=== PATIENT | male | born 1945 | race Caucasian/White ===

== ENCOUNTER 2020-10-06 10:10 | Inpatient (IN) ==
--- NOTE | 2020-10-06 10:33 | Emergency Department Note ---
SOB HPI General Chief Complaint: Shortness of Breath/Dyspnea Stated Complaint: SOB Time Seen by Provider: 10/06/20 10:16 Source: patient Mode of arrival: ambulatory Limitations: no limitations History of Present Illness HPI Narrative: Patient is a 75-year-old gentleman who arrives emergency department by private vehicle complaining of shortness of breath. The patient says he has been feeling short of breath for the past week or so. This is gradual in onset and has been progressively worsening over that period of time. He has had a mild cough without any significant sputum production. He denies any fever chills or chest pain associated with his symptoms. He has had some upper abdominal pain associated with the symptoms. He does have chronic peripheral edema but does not think this is worse than usual. He notes that he quit smoking just before the onset of his symptoms. He finds it exerting himself makes the symptoms worse. Nothing seems to make it any better Related Data Home Medications Medication Instructions Recorded Confirmed nitroglycerin 0.4 mg sublingual 0.4 mg SUBLINGUAL Q5-15M PRN 04/19/19 10/06/20 tablet Eliquis 5 mg PO BID 10/06/20 10/06/20 alogliptin 25 mg PO DAILY 10/06/20 10/06/20 lisinopril 10 mg PO DAILY 10/06/20 10/06/20 omeprazole 20 mg PO BIDAC 10/06/20 10/06/20 Previous Rx's Medication Instructions Recorded blood-glucose meter #1 each 05/18/19 blood sugar diagnostic #100 each 06/02/19 lancets #100 each 06/02/19 spironolactone 25 mg tablet 25 mg PO QDAY #90 tab 03/28/20 atorvastatin 40 mg tablet 40 mg PO QDAY #90 tab 06/15/20 omeprazole 20 mg capsule,delayed See Rx Instructions .ROUTE 06/22/20 release .COMPLEX #180 cap glipizide 5 mg tablet 5 mg PO BID #180 tab 09/14/20 metformin 1,000 mg tablet 1,000 mg PO BID #180 tab 09/14/20 metoprolol succinate 100 mg 50 mg PO BID #60 tab 09/25/20 tablet,extended release 24 hr Allergies Allergy/AdvReac Type Severity Reaction Status Date / Time No Known Drug Allergies Allergy Verified 10/06/20 17:30 Review of Systems ROS ROS Narrative: Narrative: All systems ED: reviewed and negative except as stated. Constitutional: Denies fever and chills Gastrointestinal: Denies nausea and vomiting PFSH Narrative Patient History Narrative: Narrative: Medical/Surgical/Family History All Active Problems (Updated 10/06/20 @ 17:45 by Jake Low DO) Congestive heart failure (Acute) Pleural effusion (Acute) Acute hypoxemic respiratory failure (Acute) Obesity (Acute) Hypertension, essential, benign (Chronic) Hyperlipidemia (Chronic) Rectus diastasis (Chronic) Arrhythmia (Chronic) Knee pain, bilateral (Chronic) Chronic low back pain (Chronic) Encounter for monitoring Coumadin therapy (Chronic) Onychomycosis (Chronic) Knee pain, left (Chronic) Spinal stenosis, lumbar (Chronic) Low blood pressure reading (Chronic) Type 2 diabetes mellitus with hyperglycemia (Chronic) Ventricular tachycardia (Chronic) Presence of automatic (implantable) cardiac defibrillator (Chronic) Ventricular tachycardia (Chronic) Congestive heart failure (Chronic) Diabetes (Chronic) Tobacco use (Chronic) Anticoagulated on warfarin (Chronic) Low blood pressure reading (Chronic) Hyperglycemia (Chronic) Medical History (Updated 10/06/20 @ 17:45 by Jake Low DO) Anticoagulated on warfarin Arrhythmia Chronic low back pain Diabetes Encounter for monitoring Coumadin therapy Hyperglycemia Hyperlipidemia Hypertension, essential, benign Knee pain, bilateral Knee pain, left Low blood pressure reading Low blood pressure reading Onychomycosis toenails Presence of automatic (implantable) cardiac defibrillator Rectus diastasis Spinal stenosis, lumbar Tobacco use Type 2 diabetes mellitus with hyperglycemia Ventricular tachycardia Surgical History History of pacemaker Placed 02/2018 No pertinent past surgical history Family History Other No pertinent family history Social History Smoking Status: Former smoker Alcohol Intake Frequency: former alcohol drinker Substance Use: does not use Exam Narrative Narrative: Gen -patient is awake and alert and in no acute distress. HEENT -head is atraumatic. There is no conjunctival pallor or scleral icterus. CV -S1-S2 regular rate and rhythm. Peripheral pulses are palpable. There is severe pitting edema bilateral lower extremities Resp -breathing is somewhat labored on room air with tachypnea and accessory muscle use. The patient is only able to speak a few words at a time. Lungs have mild rhonchi bilaterally. There is no cyanosis. GI - Abdomen is soft and nontender to palpation. There is no guarding or rebound tenderness. Derm -skin is warm and dry. MSK -present extremities are atraumatic. Psych -patient has appropriate affect. Neuro -patient answers questions appropriately with fluent speech. Patient moves all present extremities equally. General Limitations: no limitations Course Vital Signs Vital signs: Vital Signs Temperature 97 F 10/06/20 10:11 Pulse Rate 79 10/06/20 10:11 Respiratory Rate 24 H 10/06/20 10:11 Blood Pressure 151/78 10/06/20 10:11 Pulse Oximetry (%) 95 10/06/20 10:11 Temperature 97.9 F 10/06/20 15:37 Pulse Rate 73 10/06/20 16:01 Respiratory Rate 13 10/06/20 16:01 Blood Pressure 117/60 10/06/20 16:01 Pulse Oximetry (%) 95 10/06/20 16:01 [facility] MDM Narrative Medical decision making narrative: Patient presents with shortness of breath and peripheral edema. Chest x-ray reveals a large right-sided pleural effusion as well as pulmonary vascular congestion. His BNP is significantly elevated. There is mention of possible infiltrate in the radiologist report regarding his chest x-ray. I do not appreciate any definite focal consolidation and given the patient's lack of fever chest pain or other infectious symptoms I do not think he has pneumonia and would not benefit from antibiotics. I discussed the test results with the patient he is agreeable with the plan for admission. I discussed the patient's history examination and diagnostic findings with Dr. Munoz, who agrees with the plan of care and accepts admission. Critical care time I provided at least 31 minutes of critical care time. This was separate from any separately billable procedures. The patient was given supplemental oxygen to treat his hypoxemic respiratory failure. He was given IV diuretics to treat the causative congestive heart failure. The patient was closely monitored for response to treatment and stability of vital signs throughout their emergency department stay. Lab Data Lab results reviewed: Yes I reviewed the patient's lab results. Result diagrams: 10/06/20 11:07 Labs: Lab Results 10/06/20 10/06/20 10/06/20 Range/Units 11:07 11:07 11:07 WBC 6.0 (4.5-11.0) K/mcL RBC 3.89 L (4.50-5.90) M/mcL Hgb 11.7 L (13.5-16.5) g/dL Hct 36.5 L (41.0-55.0) % POC Hct 36 L (41-55) % MCV 93.8 (80.0-100.0) fL MCH 30.1 (26.0-34.0) pg MCHC 32.1 (31.0-36.0) g/dL RDW 15.5 H (11.5-14.5) % Plt Count 180 (140-440) K/mcL MPV 10.7 H (7.4-10.4) fL Seg Neutrophils % 65 (38-78) % Lymphocytes % 22 (15-49) % Monocytes % (Manual) 12 (1-12) % Eosinophils % (Manual) 1 (0-7) % Platelet Estimate Normal (Normal) RBC Morphology Abnormal A (Normal) Anisocytosis Few A (None Seen) POC Sodium 140 (133-145) mEq/L POC Potassium 4.2 (3.3-5.1) mEql/L POC Chloride 105 (96-108) mEq/L POC Total CO2 23 (22-30) mmol/L POC BUN 11 (6-20) mg/dL POC Creatinine 0.8 (0.6-1.2) mg/dL POC Glucose 95 (70-105) mg/dL POC WB Ioniz Calcium 1.18 (1.16-1.32) mmEq/L Troponin T < 0.01 (<0.03) ng/mL NT-Pro-B Natriuret Pep 492.4 H (<450.0) pg/mL Procalcitonin (<0.10) ng/mL 10/06/20 Range/Units 11:07 WBC (4.5-11.0) K/mcL RBC (4.50-5.90) M/mcL Hgb (13.5-16.5) g/dL Hct (41.0-55.0) % POC Hct (41-55) % MCV (80.0-100.0) fL MCH (26.0-34.0) pg MCHC (31.0-36.0) g/dL RDW (11.5-14.5) % Plt Count (140-440) K/mcL MPV (7.4-10.4) fL Seg Neutrophils % (38-78) % Lymphocytes % (15-49) % Monocytes % (Manual) (1-12) % Eosinophils % (Manual) (0-7) % Platelet Estimate (Normal) RBC Morphology (Normal) Anisocytosis (None Seen) POC Sodium (133-145) mEq/L POC Potassium (3.3-5.1) mEql/L POC Chloride (96-108) mEq/L POC Total CO2 (22-30) mmol/L POC BUN (6-20) mg/dL POC Creatinine (0.6-1.2) mg/dL POC Glucose (70-105) mg/dL POC WB Ioniz Calcium (1.16-1.32) mmEq/L Troponin T (<0.03) ng/mL NT-Pro-B Natriuret Pep (<450.0) pg/mL Procalcitonin 0.10 H (<0.10) ng/mL ED POC Tests ED POC Tests: RONY - SARS Antigen Negative EKG Data EKG #1: EKG attestation: Yes I reviewed and interpreted this EKG. EKG results narrative: EKG performed at 10:25 AM: Sinus rhythm, rate 76. Normal P wave and QRS morphology. T waves are inverted in leads III and aVF. There is 0.[address] depression in V4 through V6. Normal [place] QRS and QTc duration. There are no significant changes compared to October 21, 2019. EKG was interpreted by me. Discharge Plan Patient/Caregiver Discharge Instructions Pt seen by STORAGE ENGINEER/PA only: No Clinical Impression: Congestive heart failure, Pleural effusion, Acute hypoxemic respiratory failure Patient Disposition: Xfer As Inpt ([facility]) Condition: Fair Discharge Date/Time: 10/06/20 15:25
--- NOTE | 2020-10-06 10:55 | XRay Report ---
INDICATION: dyspnea TECHNIQUE: PA and lateral upright chest x-ray COMPARISON: Previous chest x-ray dated 10/21/2019, 05/21/2018, 02/17/2018 FINDINGS: Left-sided pacemaker. Transvenous pacemaker leads are in unchanged positions Lungs: Negative left lung. No parenchymal infiltrate or mass. There is a large right pleural effusion obscuring the right mid and lower lung. There is a right suprahilar infiltrate which may be consistent with pneumonia. Heart, vascular: No significant cardiomegaly. Pulmonary vascularity is normal. No pulmonary edema or pulmonary congestion Mediastinum, praful: No mediastinal widening. No hilar mass Pleura:Large right pleural effusion. This is new since 10/21/2019 Thoracic spine, ribs: No thoracic compression fracture. Ribs are negative. No fracture. No lytic lesion IMPRESSION: 1. Large right pleural effusion, new since 10/21/2019 2. Right upper lobe is aerated. There is a right suprahilar infiltrate. Pneumonia is possible Interpreted and Authenticated by: Denzel Oneal 10/06/20
[2020-10-06 11:12] LABS: POC Blood Urea Nitrogen 11 mg/dL (6-20); POC CO2 23 mmol/L (22-30); POC Calcium, Ionized 1.18 mmEq/L (1.16-1.32); POC Chloride 105 mEq/L (96-108); POC Creatinine 0.8 mg/dL (0.6-1.2); POC Glucose, Random 95 mg/dL (70-105); POC Hematocrit 36 % (41-55); POC Potassium 4.2 mEql/L (3.3-5.1); POC Sodium 140 mEq/L (133-145)
[2020-10-06 11:45] LABS: Hematocrit 36.5 % (41.0-55.0); Hemoglobin 11.7 g/dL (13.5-16.5); Mean Cell Volume 93.8 fL (80.0-100.0); Mean Corpuscular HGB Conc 32.1 g/dL (31.0-36.0); Mean Platelet Volume 10.7 fL (7.4-10.4); Platelet Count 180 K/mcL (140-440); RBC 3.89 M/mcL (4.50-5.90); Red Cell Distribution Width 15.5 % (11.5-14.5)
[2020-10-06 12:03] LABS: proBNP 492.4 pg/mL (<450.0)
[2020-10-06] MEDS ORDERED: FUROSEMIDE 20 MG/2 ML VIAL IV ONE (12:35)
[2020-10-06 12:41] LABS: Anisocytosis FEW (None Seen); Eosinophils % (Manual) 1 % (0-7); Lymphocytes % 22 % (15-49); Monocytes % (Manual) 12 % (1-12); Platelet Estimate NORMAL (Normal); RBC Morphology ABNORMAL (Normal); Segmented Neutrophils % 65 % (38-78)
--- NOTE | 2020-10-06 13:02 | EKG ---
[facility] Test Date: 2020-10-06 Pat Name: Wayne Kauffman Department: ED Room: Gender: Male Reconciliation Coordinator: : 1945 Requested By: Jake Low Order Number: [id number] Reading MD: Jose Jones M.D. Measurements Intervals [place] Rate: 76 P: 17 TN: 185 QRS: 70 QRSD: 119 T: -36 QT: 407 QTc: 458 Interpretive Statements Sinus rhythm Nonspecific intraventricular conduction delay Probable inferior infarct, age indeterminate ST depr, consider ischemia, anterolateral lds NO PRIOR TRACING FOR COMPARISON Electronically Signed On 10-06-2020 13:01:38 PDT by Jose Jones M.D. /store/[email or web address]/[id number]/[email or web address]/[id number]
--- NOTE | 2020-10-06 13:37 | Internal Med Progress Note ---
SUBJECTIVE Subjective Patient information: Note initiated : 10/06/20 at 1:36 pm Service Date, if different from initiated Date: [] Patient: Wayne Kauffman 75 y/o M admitted on for Shortness of breath. Chief Complaint: [] Constitutional Vitals: Vital Signs Temp Pulse Resp BP Pulse Ox 97 F 73 19 140/73 93 10/06/20 10:11 10/06/20 13:31 10/06/20 13:31 10/06/20 13:31 10/06/20 13:31 Period Temp Pulse Resp BP Sys/Levi Pulse Ox Last 24 Hr 97 F 66-79 17-26 110-151/65-82 93-100 Intake and Output 10/05/20 10/06/20 10/06/20 21:59 05:59 13:59 Weight 97.976 kg Patient Weight 10/07/20 05:59 Weight 97.976 kg Intake & Output: Intake & Output 10/05/20 10/06/20 10/06/20 21:59 05:59 13:59 Weight 97.976 kg OBJ DATA Labs CBC & Chem 7: 10/06/20 11:07 Labs: Abnormal Lab Results 10/06/20 10/06/20 11:07 11:07 RBC 3.89 L Hgb 11.7 L Hct 36.5 L POC Hct 36 L RDW 15.5 H MPV 10.7 H RBC Morphology Abnormal A Anisocytosis Few A NT-Pro-B Natriuret Pep 492.4 H A/P Narrative A/P Narrative: * ADHF * Pleural effusion * Rt sided PNA * Acute hypoxic respiratory failure * DMII * HTn * Anticoagulation * GERD Time Spent With Patient Time: Total time spent is greater than 50% in coordination of care (as documented) at patient's floor/unit and/or counseling patient:
--- NOTE | 2020-10-06 15:02 | Internal Med History&Physical ---
HPI History of Present Illness Patient information: Note initiated : 10/06/20 at 2:57 pm Service Date, if different from initiated Date: [] Patient: Wayne Kauffman a 75 y/o M admitted on for Shortness of breath. Chief Complaint: [] History of present illness: Mr. Kauffman is a 75 year old M With history of systolic heart failure/DM type II/HTN/chronic lymphedema and active smoker who presents to the ER with 2 weeks onset of gradually worsening shortness of breath limiting his functionality. Patient's has been getting more fatigue lethargic/gaining weight with increasing lower extremity swelling. Over the last week he has noted increasing orthopnea unable to lay down on his back. Symptoms progressed when the last 48 hours he has been barely able to move around. He lives along with his daughter in [facility] in the basement. Due to his symptoms patient was brought into the ER for evaluation. On of last month he underwent ablation for atrial fibrillation and successful conversion to sinus. He is currently on Eliquis Initial work-up in the ER was consistent with acute decompensated heart failure/right-sided chest infiltrates and pleural effusion. Hospital service was consulted for management of CHF and above symptoms. At the time of my evaluation patient is alert and oriented. She was able to answer most the questions. Is currently on 2 L oxygen. He denies NSAID intake/excessive salt diet/missing his regular home medications. He denies sick contacts, fever, chills, diarrhea, dysuria. He is up-to-date on flu pneumonia and Covid vaccine. He follows up with physician Royce Mckee Review of systems 10 point review system was performed and is negative except for ones discussed above PFSH PFSH All Active Problems Obesity (Acute) Hypertension, essential, benign (Chronic) Hyperlipidemia (Chronic) Rectus diastasis (Chronic) Arrhythmia (Chronic) Knee pain, bilateral (Chronic) Chronic low back pain (Chronic) Encounter for monitoring Coumadin therapy (Chronic) Onychomycosis (Chronic) Knee pain, left (Chronic) Spinal stenosis, lumbar (Chronic) Low blood pressure reading (Chronic) Type 2 diabetes mellitus with hyperglycemia (Chronic) Ventricular tachycardia (Chronic) Presence of automatic (implantable) cardiac defibrillator (Chronic) Ventricular tachycardia (Chronic) Congestive heart failure (Chronic) Diabetes (Chronic) Tobacco use (Chronic) Anticoagulated on warfarin (Chronic) Low blood pressure reading (Chronic) Hyperglycemia (Chronic) Medical History Anticoagulated on warfarin Arrhythmia Chronic low back pain Diabetes Encounter for monitoring Coumadin therapy Hyperglycemia Hyperlipidemia Hypertension, essential, benign Knee pain, bilateral Knee pain, left Low blood pressure reading Low blood pressure reading Onychomycosis toenails Presence of automatic (implantable) cardiac defibrillator Rectus diastasis Spinal stenosis, lumbar Tobacco use Type 2 diabetes mellitus with hyperglycemia Ventricular tachycardia Surgical History History of pacemaker Placed 02/2018 No pertinent past surgical history Family History Other No pertinent family history Social History household members: alone marital status: daily servings fruits/ve-1 physical activity: walking alcohol intake frequency: former alcohol drinker substance use type: does not use MEDS/ALLERGIES Home Medications and Allergies Home Medications Medication Instructions Recorded Confirmed Type nitroglycerin 0.4 mg sublingual 0.4 mg SUBLINGUAL Q5-15M PRN 04/19/19 10/06/20 History tablet blood-glucose meter #1 each 05/18/19 10/06/20 Rx blood sugar diagnostic #100 each 06/02/19 10/06/20 Rx lancets #100 each 06/02/19 10/06/20 Rx spironolactone 25 mg tablet 25 mg PO QDAY #90 tab 03/28/20 10/06/20 Rx atorvastatin 40 mg tablet 40 mg PO QDAY #90 tab 06/15/20 10/06/20 Rx omeprazole 20 mg capsule,delayed See Rx Instructions .ROUTE 06/22/20 10/06/20 Rx release .COMPLEX #180 cap lisinopril 10 mg tablet See Rx Instructions .ROUTE 08/08/20 10/06/20 Rx .COMPLEX #90 tab alogliptin 25 mg tablet See Rx Instructions .ROUTE 09/11/20 10/06/20 Rx .COMPLEX #90 tab glipizide 5 mg tablet 5 mg PO BID #180 tab 09/14/20 10/06/20 Rx metformin 1,000 mg tablet 1,000 mg PO BID #180 tab 09/14/20 10/06/20 Rx metoprolol succinate 100 mg 50 mg PO BID #60 tab 09/25/20 10/06/20 Rx tablet,extended release 24 hr Eliquis 5 mg PO BID 10/06/20 10/06/20 History Allergies Allergy/AdvReac Type Severity Reaction Status Date / Time No Known Drug Allergies Allergy Verified 09/14/20 08:44 EXAM Constitutional Vitals: Temp Pulse Resp BP Pulse Ox 97 F 81 18 121/77 97 10/06/20 10:11 10/06/20 14:16 10/06/20 14:31 10/06/20 14:31 10/06/20 14:16 Alert oriented, no anxiety Head normocephalic Oral cavity moist No ear or nose discharge Eye no subconjunctival pallor, movement symmetrical S1-S2 regular sinus On 2 L oxygen, minimal labored breathing, diminished breath sounds right base Nondistended nontender abdomen Lower extremity bilateral pitting edema, no cyanosis clubbing or joint swelling Skin no suspicious lesion Psych anxious but no hallucination Neuro normal higher function on limited neuro exam DATA Data Completed and Pending Labs: Labs from last 24 hours 10/06/20 10/06/20 10/06/20 11:07 11:07 11:07 WBC 6.0 RBC 3.89 L Hgb 11.7 L Hct 36.5 L POC Hct 36 L MCV 93.8 MCH 30.1 MCHC 32.1 RDW 15.5 H Plt Count 180 MPV 10.7 H Seg Neutrophils % 65 Lymphocytes % 22 Monocytes % (Manual) 12 Eosinophils % (Manual) 1 Platelet Estimate Normal RBC Morphology Abnormal A Anisocytosis Few A POC Sodium 140 POC Potassium 4.2 POC Chloride 105 POC Total CO2 23 POC BUN 11 POC Creatinine 0.8 POC Glucose 95 POC WB Ioniz Calcium 1.18 Troponin T < 0.01 NT-Pro-B Natriuret Pep 492.4 H A/P Narrative A/P Narrative: * Acute decompensated heart failure, review recent echocardiogram EF 35 to 40%. Continue diuresis. Continue TENNILLE inhibitor/beta-felix/spironolactone and optimize CHF management. Inpatient hospitalization * Acute hypoxic respiratory failure secondary above. Continue supplemental oxygen/pulmonary toilet * Right-sided chest infiltrates suspected pneumonia. Empiric antibiotic coverage and de-escalate if no evidence of active infection. Procalcitonin/sputum exam/cultures. * Right-sided pleural effusion likely secondary to CHF. Repeat interval chest imaging following aggressive diuresis. * DM type II continue alogliptin/Metformin/diabetic diet/insulin sliding scale * GERD continue PPI * Anticoagulation on rivaroxaban for CVA prophylaxis * Hyperlipemia continue statin Plan * Inpatient admission * Aggressive diuresis * Pre-existing medical condition management home medication * Wean oxygen as tolerated * Empiric antibiotics DC if no evidence of infection * PT OT nutrition support * Discharge planning Time Spent With Patient Time: Total time spent is greater than 50% in coordination of care (as documented) at patient's floor/unit and/or counseling patient:
[2020-10-06] MEDS ORDERED: DEXTROSE 50% 50 ML VIAL IV PRN (15:37)
[2020-10-06] MEDS ORDERED: POTASSIUM CHLORIDE 20 MEQ PACKET PO PRN (15:37)
[2020-10-06] MEDS ORDERED: ONDANSETRON 4 MG/2 ML VIAL IV PRN (15:37)
[2020-10-06] MEDS ORDERED: POTASSIUM CHLORIDE 40 MEQ in DEXTROSE 5% IN WATER 500 ML IV PRN (15:37)
[2020-10-06] MEDS ORDERED: BISACODYL 10 MG SUPP.RECT PR PRN (15:37)
[2020-10-06] MEDS ORDERED: ONDANSETRON 4 MG ODT TABLET SL PRN (15:37)
[2020-10-06] MEDS ORDERED: METOPROLOL TARTRATE 5 MG/5 ML VIAL IV PRN (15:37)
[2020-10-06] MEDS ORDERED: POLYETHYLENE GLYCOL 3350 17 GM PACKET PO PRN (15:37)
[2020-10-06] MEDS ORDERED: DEXTROSE 31 GM ORAL.SUSP PO PRN (15:37)
[2020-10-06] MEDS: FUROSEMIDE 40 MG/4 ML VIAL IV SCH ×2 (16:12→23:22)
[2020-10-06] MEDS: 0.9 % SODIUM CHLORIDE 10 ML SYRINGE IV SCH ×3 (16:12→23:22)
[2020-10-06] MEDS: LEVOFLOXACIN 750 MG/150 ML BAG IV SCH (16:12)
[2020-10-06] MEDS: ACETAMINOPHEN 325 MG TABLET PO PRN (16:13)
[2020-10-06] MEDS: LISINOPRIL 10 MG TABLET PO SCH (16:13)
[2020-10-06] MEDS: INSULIN LISPRO 1 UNIT/0.01 ML UNIT SQ SCH ×2 (16:14→20:53)
[2020-10-06] MEDS: OMEPRAZOLE 20 MG CAPSULE PO SCH (16:16)
[2020-10-06] MEDS: metFORMIN 500 MG TABLET PO SCH (16:55)
[2020-10-06] MEDS: METOPROLOL SUCCINATE 50 MG TAB.XL.24H PO SCH (21:35)
[2020-10-06] MEDS: DOCUSATE SODIUM 100 MG CAPSULE PO SCH (21:35)
[2020-10-06] MEDS: SENNOSIDES/DOCUSATE SODIUM 1 TAB TABLET PO SCH (21:35)
[2020-10-06] MEDS: APIXABAN 5 MG TABLET PO SCH (21:35)
[2020-10-06] MEDS: MELATONIN 3 MG TABLET PO PRN (21:35)
[2020-10-06] MEDS: TAMSULOSIN 0.4 MG CAPSULE PO SCH (21:35)
[2020-10-07] MEDS: ACETAMINOPHEN 325 MG TABLET PO PRN (00:51)
[2020-10-07] MEDS: 0.9 % SODIUM CHLORIDE 10 ML SYRINGE IV SCH ×3 (05:45→21:03)
[2020-10-07 06:59] LABS: ALT/SGPT 25 U/L (<40); AST/SGOT 41 U/L (<40); Albumin 3.5 gm/dL (3.2-5.2); Albumin/Globulin Ratio 1.3 (1.0-2.3); Alkaline Phosphatase 115 U/L (39-117); Bilirubin,Direct < 0.2 mg/dL (0-0.3); Bilirubin,Total 0.4 mg/dL (0.1-1.0); Blood Urea Nitrogen 16 mg/dL (8-23); Calcium 8.9 mg/dL (8.6-10.4); Carbon Dioxide 23 mmol/L (22-30); Chloride 98 mmol/L (96-108); Globulin 2.8 gm/dL (2.2-3.7); Glomerular Filtration Rate 58; Glucose 131 mg/dL (70-105); Lactate Dehydrogenase 262 U/L (135-225); Triglycerides 88 mg/dL (<150); Uric Acid 6.1 mg/dL (2.5-8.0)
[2020-10-07] MEDS: MAGNESIUM SULFATE 2 GM/50 ML BAG IV PRN (07:43)
[2020-10-07] MEDS: metFORMIN 500 MG TABLET PO SCH ×2 (07:44→16:55)
[2020-10-07] MEDS: OMEPRAZOLE 20 MG CAPSULE PO SCH ×2 (07:44→16:56)
[2020-10-07] MEDS: FUROSEMIDE 40 MG/4 ML VIAL IV SCH ×3 (07:45→23:42)
[2020-10-07] MEDS: INSULIN LISPRO 1 UNIT/0.01 ML UNIT SQ SCH ×4 (07:46→21:03)
[2020-10-07 07:55] LABS: Basophils # (Auto) 0.04 K/mcL (0.00-0.20); Basophils % (Auto) 0.8 % (0.0-2.0); Eosinophils # (Auto) 0.12 K/mcL (0.00-0.70); Eosinophils % (Auto) 2.5 % (0.0-7.0); Hematocrit 33.2 % (41.0-55.0); Hemoglobin 10.5 g/dL (13.5-16.5); Lymphocytes # (Auto) 0.95 K/mcL (1.50-4.80); Lymphocytes % (Auto) 19.6 % (15.0-49.0); Mean Cell Volume 94.6 fL (80.0-100.0); Mean Corpuscular HGB Conc 31.6 g/dL (31.0-36.0); Monocytes # (Auto) 0.71 K/mcL (0.10-0.90); Monocytes % (Auto) 14.7 % (1.0-12.0); Neutrophils % (Auto) 62.4 % (38.0-78.0); Platelet Count 138 K/mcL (140-440); RBC 3.51 M/mcL (4.50-5.90); Red Cell Distribution Width 15.6 % (11.5-14.5); WBC 4.8 K/mcL (4.5-11.0)
[2020-10-07 08:32] LABS: Erythrocyte Sedimentation Rate 34 mm/hr (0-15)
[2020-10-07] MEDS: LEVOFLOXACIN 750 MG/150 ML BAG IV SCH (09:30)
[2020-10-07] MEDS: ATORVASTATIN 40 MG TABLET PO SCH (09:42)
[2020-10-07] MEDS: MULTIVIT,THER IRON,CA,FA & MIN 1 TABLET PO SCH (09:42)
[2020-10-07] MEDS: SPIRONOLACTONE 25 MG TABLET PO SCH (09:42)
[2020-10-07] MEDS: THIAMINE 100 MG TABLET PO SCH (09:42)
[2020-10-07] MEDS: DOCUSATE SODIUM 100 MG CAPSULE PO SCH ×2 (09:43→21:02)
[2020-10-07] MEDS: APIXABAN 5 MG TABLET PO SCH ×2 (09:43→21:02)
--- NOTE | 2020-10-07 10:05 | Internal Med Progress Note ---
SUBJECTIVE Subjective Patient information: Note initiated : 10/07/20 at 10:01 am Service Date, if different from initiated Date: [] Patient: Wayne Kauffman a 75 y/o M admitted on 10/06/20 for Shortness of breath. Chief Complaint: [] Interval history: History of present illness: Mr. Kauffman is a 75 year old M With history of systolic heart failure/DM type II/HTN/chronic lymphedema and active smoker who presents to the ER with 2 weeks onset of gradually worsening shortness of breath limiting his functionality. Patient's has been getting more fatigue lethargic/gaining weight with increasing lower extremity swelling. Over the last week he has noted increasing orthopnea unable to lay down on his back. Symptoms progressed when the last 48 hours he has been barely able to move around. He lives along with his daughter in [facility] in the basement. Due to his symptoms patient was brought into the ER for evaluation. On of last month he underwent ablation for atrial fibrillation and successful conversion to sinus. He is currently on Eliquis Initial work-up in the ER was consistent with acute decompensated heart failure/right-sided chest infiltrates and pleural effusion. Hospital service was consulted for management of CHF and above symptoms. At the time of my evaluation patient is alert and oriented. She was able to an swer most the questions. Is currently on 2 L oxygen. He denies NSAID intake/excessive salt diet/missing his regular home medications. He denies sick contacts, fever, chills, diarrhea, dysuria. He is up-to-date on flu pneumonia and Covid vaccine. He follows up with physician Royce Mckee 10/07-patient doing a lot better. Diuresing well. No overnight events. Feels improved since admission. Orthopnea improving. Tolerating diet. Ongoing therapies. No overnight fever chills or concerns per nursing staff. Paced rhythm, pleasant and cooperative Constitutional Vitals: Vital Signs Temp Pulse Resp BP Pulse Ox 97.5 F 65 18 94/53 95 10/07/20 08:03 10/07/20 08:03 10/07/20 08:03 10/07/20 08:03 10/07/20 08:03 Period Temp Pulse Resp BP Sys/Levi Pulse Ox Last 24 Hr 97 F-98.2 F 65-85 13-28 78-151/42-88 89-100 Intake and Output 10/06/20 10/07/20 10/07/20 21:59 05:59 13:59 Intake Total 150 150 290 Output Total 675 550 50 Balance -525 -400 240 Weight 97.296 kg Alert oriented Nonlabored breathing Paced rhythm No anxiety Improving lymphedema Intake & Output: Intake & Output 10/06/20 10/07/20 10/07/20 21:59 05:59 13:59 Intake Total 150 150 290 Output Total 675 550 50 Balance -525 -400 240 Weight 97.296 kg Intake: IV 150 50 Oral 150 240 Output: Void Amount 675 550 50 Other: Meal Breakfast Percent of Meal Consumed 50% Feeding Ability Independent Urine Appearance Clear Clear Clear Urine Color Bright Yellow Dark Yellow Light Alyce Urine Odor Normal Normal Normal Stool Size Small Small Small Stool Color Brown Brown Brown Stool Consistency Soft Soft Zaira Formed # Bowel Movements 1 1 1 # of times incontinent of 0 0 Bowels OBJ DATA Labs CBC & Chem 7: 10/07/20 05:34 10/07/20 05:34 Labs: Abnormal Lab Results 10/07/20 10/07/20 10/06/20 05:34 05:34 11:07 RBC 3.51 L Hgb 10.5 L Hct 33.2 L POC Hct RDW 15.6 H Plt Count 138 L MPV 11.0 H Bent % (Auto) 14.7 H Lymph # (Auto) 0.95 L RBC Morphology Anisocytosis ESR 34 H Glucose 131 H Magnesium 1.1 L AST 41 H Lactate Dehydrogenase 262 H NT-Pro-B Natriuret Pep Procalcitonin 0.10 H 10/06/20 10/06/20 11:07 11:07 RBC 3.89 L Hgb 11.7 L Hct 36.5 L POC Hct 36 L RDW 15.5 H Plt Count MPV 10.7 H Bent % (Auto) Lymph # (Auto) RBC Morphology Abnormal A Anisocytosis Few A ESR Glucose Magnesium AST Lactate Dehydrogenase NT-Pro-B Natriuret Pep 492.4 H Procalcitonin Meds: Medications Acetaminophen (Acetaminophen 325 Mg Tablet) 650 mg PO Q4-6HP PRN; Protocol PRN Reason: Per Pain Protocol/Fever > 101 Last Admin: 10/07/20 00:51 Dose: 650 mg Documented by: Apixaban (Apixaban 5 Mg Tablet) 5 mg PO BID [facility] Last Admin: 10/07/20 09:43 Dose: 5 mg Documented by: Atorvastatin Calcium (Atorvastatin 40 Mg Tablet) 40 mg PO QDAY [facility] Last Admin: 10/07/20 09:42 Dose: 40 mg Documented by: Bisacodyl (Bisacodyl 10 Mg Supp.Rect) 10 mg NC Q2-3DAYS PRN PRN Reason: Constipation Dextrose (Dextrose 50% 50 Ml Vial) 0 ml IV UD PRN PRN Reason: Hypoglycemia Diagnostic Test (Pha) (Accu-Chek 1 Each Strip) 1 each FS [facility] Last Admin: 10/07/20 07:46 Dose: 1 each Documented by: Docusate Sodium (Docusate Sodium 100 Mg Capsule) 100 mg PO BID [facility] Last Admin: 10/07/20 09:43 Dose: 100 mg Documented by: Furosemide (Furosemide 40 Mg/4 Ml Vial) 20 mg IV Q8H [facility] Last Admin: 10/07/20 07:45 Dose: 20 mg Documented by: Glucose (Dextrose 31 Gm Oral.Susp) 15 gm PO PRN PRN PRN Reason: Hypoglycemia Potassium Chloride 40 meq/ (Dextrose) 520 mls @ 130 mls/hr IV UD PRN PRN Reason: K+ = or < 3.5 Acetaminophen (Ofirmev) 650 mg in 65 mls @ 130 mls/hr IV Q6HP PRN; Protocol PRN Reason: Per Pain Protocol/Fever > 101 Magnesium Sulfate (Magnesium Sulfate) 2 gm in 50 mls @ 50 mls/hr IV UD PRN PRN Reason: MG = or < 1.7 Last Infusion: 10/07/20 08:43 Dose: Infused Documented by: Levofloxacin (Levaquin) 750 mg in 150 mls @ 100 mls/hr IV DAILY [facility]; Protocol Last Admin: 10/07/20 09:30 Dose: 100 mls/hr Documented by: Insulin Human Lispro (Insulin Lispro 1 Unit/0.01 Ml Unit) 0 unit SQ [facility]; Protocol Last Admin: 10/07/20 07:46 Dose: Not Given Documented by: Iron Carb/Multivit/Love/Folic Acid (Multivit,Ther Iron,Ca,Fa & Min 1 Tablet) 1 tab PO DAILY [facility] Last Admin: 10/07/20 09:42 Dose: 1 tab Documented by: Lisinopril (Lisinopril 10 Mg Tablet) 10 mg PO DAILY [facility] Last Admin: 10/06/20 16:13 Dose: 10 mg Documented by: Melatonin (Melatonin 3 Mg Tablet) 3 mg PO HSP PRN PRN Reason: Insomnia Last Admin: 10/06/20 21:35 Dose: 3 mg Documented by: Metformin HCl (Metformin 500 Mg Tablet) 1,000 mg PO BIDCC [facility] Last Admin: 10/07/20 07:44 Dose: 1,000 mg Documented by: Metoprolol Succinate (Metoprolol Succinate 50 Mg Tab.Xl.24h) 50 mg PO BID [facility] Last Admin: 10/06/20 21:35 Dose: 50 mg Documented by: Metoprolol Tartrate (Metoprolol Tartrate 5 Mg/5 Ml Vial) 5 mg IV Q5M PRN PRN Reason: Heart Rate > 140 bpm Omeprazole (Omeprazole 20 Mg Capsule) 20 mg PO BIDAC [facility] Last Admin: 10/07/20 07:44 Dose: 20 mg Documented by: Ondansetron HCl (Ondansetron 4 Mg Odt Tablet) 4 mg SL Q4-6HP PRN; Protocol PRN Reason: Nausea And Vomiting Ondansetron HCl (Ondansetron 4 Mg/2 Ml Vial) 4 mg IV Q4-6HP PRN; Protocol PRN Reason: Nausea And Vomiting Alogliptin 25 Mg (Tablet) 1 dose PO DAILY [facility] Polyethylene Glycol (Polyethylene Glycol 3350 17 Gm Packet) 17 gm PO DAILYP PRN PRN Reason: Constipation Potassium Chloride (Potassium Chloride 20 Meq Packet) 40 meq PO DAILYP PRN PRN Reason: K+ < 3.5 Senna/Docusate Sodium (Sennosides/Docusate Sodium 1 Tab Tablet) 1 tab PO [facility] Last Admin: 10/06/20 21:35 Dose: 1 tab Documented by: Sodium Chloride (0.9 % Sodium Chloride 10 Ml Syringe) 10 ml IV Q8 [facility] Last Admin: 10/07/20 05:45 Dose: 10 ml Documented by: Spironolactone (Spironolactone 25 Mg Tablet) 25 mg PO QDAY [facility] Last Admin: 10/07/20 09:42 Dose: 25 mg Documented by: Tamsulosin HCl (Tamsulosin 0.4 Mg Capsule) 0.4 mg PO [facility] Last Admin: 10/06/20 21:35 Dose: 0.4 mg Documented by: Thiamine HCl (Thiamine 100 Mg Tablet) 100 mg PO DAILY [facility] Last Admin: 10/07/20 09:42 Dose: 100 mg Documented by: A/P Narrative A/P Narrative: * Acute decompensated heart failure, review recent echocardiogram EF 35 to 40%. Continue diuresis. Continue TENNILLE inhibitor/beta-felix/spironolactone and optimize CHF management. Inpatient hospitalization * Acute hypoxic respiratory failure secondary above. Continue supplemental oxygen/pulmonary toilet * Right-sided chest infiltrates suspected pneumonia. Procalcitonin 0.1/sputum exam/cultures. DC antibiotics * Low magnesium on replacement * History of arrhythmia status post ablation/pacemaker at [facility]. * Right-sided pleural effusion likely secondary to CHF. Repeat interval chest imaging following aggressive diuresis. * DM type II continue alogliptin/Metformin/diabetic diet/insulin sliding scale * GERD continue PPI * Anticoagulation on rivaroxaban for CVA prophylaxis * Hyperlipemia continue statin Plan * DC antibiotics * Continue diuresis * Replace magnesium * Pre-existing medical condition management home medication * Continue to wean oxygen as tolerated * PT OT nutrition support * Discharge planning Time Spent With Patient Time: Total time spent is greater than 50% in coordination of care (as documented) at patient's floor/unit and/or counseling patient: QUALITY VTE Deep Vein Thrombosis/Pulmonary Embolism Present on Admission: No
[2020-10-07] MEDS: METOPROLOL SUCCINATE 50 MG TAB.XL.24H PO SCH ×2 (11:31→21:03)
[2020-10-07] MEDS: LISINOPRIL 10 MG TABLET PO SCH (11:31)
[2020-10-07] MEDS: ACETAMINOPHEN 650 MG/65 ML BAG IV PRN (16:56)
[2020-10-07] MEDS: SENNOSIDES/DOCUSATE SODIUM 1 TAB TABLET PO SCH (21:02)
[2020-10-07] MEDS: TAMSULOSIN 0.4 MG CAPSULE PO SCH (21:03)
[2020-10-08] MEDS: 0.9 % SODIUM CHLORIDE 10 ML SYRINGE IV SCH ×3 (05:57→21:12)
[2020-10-08] MEDS: FUROSEMIDE 40 MG/4 ML VIAL IV SCH ×2 (07:23→16:53)
[2020-10-08] MEDS: metFORMIN 500 MG TABLET PO SCH ×2 (07:24→16:53)
[2020-10-08] MEDS: OMEPRAZOLE 20 MG CAPSULE PO SCH ×2 (07:24→16:53)
[2020-10-08] MEDS: INSULIN LISPRO 1 UNIT/0.01 ML UNIT SQ SCH ×4 (07:31→21:04)
--- NOTE | 2020-10-08 08:13 | XRay Report ---
INDICATION: Interval Change TECHNIQUE: AP portable upright chest x-ray COMPARISON: Previous chest x-rays dated 10/06/2020, 10/21/2019 FINDINGS:Left transvenous pacemaker leads are unchanged Lungs:Left lung remains negative. No focal parenchymal infiltrate or mass. Right lung is only partially aerated. Right upper lobe is aerated and there is probable right upper lobe infiltrate. This appears slightly worse than on previous examination Heart, vascular:No significant cardiomegaly. Pulmonary vascularity is normal. No pulmonary edema or pulmonary congestion Mediastinum, praful:No mediastinal widening. No hilar mass Pleura:Large right pleural effusion, unchanged since 10/06/2020 and new since 10/21/2019 Skeletal:Negative. IMPRESSION: 1. Large right pleural effusion 2. Probable right upper lobe infiltrate Interpreted and Authenticated by: Denzel Oneal 10/08/20
[2020-10-08 08:23] LABS: Basophils # (Auto) 0.04 K/mcL (0.00-0.20); Basophils % (Auto) 0.8 % (0.0-2.0); Eosinophils # (Auto) 0.11 K/mcL (0.00-0.70); Eosinophils % (Auto) 2.2 % (0.0-7.0); Hematocrit 32.3 % (41.0-55.0); Hemoglobin 10.1 g/dL (13.5-16.5); Lymphocytes # (Auto) 0.92 K/mcL (1.50-4.80); Lymphocytes % (Auto) 18.1 % (15.0-49.0); Mean Cell Volume 94.7 fL (80.0-100.0); Mean Corpuscular HGB Conc 31.3 g/dL (31.0-36.0); Mean Platelet Volume 10.7 fL (7.4-10.4); Monocytes # (Auto) 0.71 K/mcL (0.10-0.90); Neutrophils % (Auto) 64.9 % (38.0-78.0); Platelet Count 138 K/mcL (140-440); RBC 3.41 M/mcL (4.50-5.90); Red Cell Distribution Width 15.4 % (11.5-14.5); WBC 5.1 K/mcL (4.5-11.0)
[2020-10-08 08:24] LABS: ALT/SGPT 22 U/L (<40); AST/SGOT 37 U/L (<40); Albumin 3.4 gm/dL (3.2-5.2); Albumin/Globulin Ratio 1.2 (1.0-2.3); Alkaline Phosphatase 108 U/L (39-117); Bilirubin,Direct < 0.2 mg/dL (0-0.3); Bilirubin,Total 0.5 mg/dL (0.1-1.0); Blood Urea Nitrogen 27 mg/dL (8-23); Carbon Dioxide 22 mmol/L (22-30); Chloride 98 mmol/L (96-108); Globulin 2.8 gm/dL (2.2-3.7); Glomerular Filtration Rate 41; Glucose 120 mg/dL (70-105); Lactate Dehydrogenase 257 U/L (135-225); Phosphorous 4.6 mg/dL (2.5-4.5); Triglycerides 100 mg/dL (<150); Uric Acid 6.5 mg/dL (2.5-8.0)
[2020-10-08] MEDS: MAGNESIUM SULFATE 2 GM/50 ML BAG IV PRN (09:37)
--- NOTE | 2020-10-08 09:59 | Internal Med Progress Note ---
SUBJECTIVE Subjective Patient information: Note initiated : 10/08/20 at 9:56 am Service Date, if different from initiated Date: [] Patient: Wayne Kauffman a 75 y/o M admitted on 10/06/20 for Shortness of breath. Chief Complaint: [] Interval history: History of present illness: Mr. Kauffman is a 75 year old M With history of systolic heart failure/DM type II/HTN/chronic lymphedema and active smoker who presents to the ER with 2 weeks onset of gradually worsening shortness of breath limiting his functionality. Patient's has been getting more fatigue lethargic/gaining weight with increasing lower extremity swelling. Over the last week he has noted increasing orthopnea unable to lay down on his back. Symptoms progressed when the last 48 hours he has been barely able to move around. He lives along with his daughter in [facility] in the basement. Due to his symptoms patient was brought into the ER for evaluation. On of last month he underwent ablation for atrial fibrillation and successful conversion to sinus. He is currently on Eliquis Initial work-up in the ER was consistent with acute decompensated heart failure/right-sided chest infiltrates and pleural effusion. Hospital service was consulted for management of CHF and above symptoms. At the time of my evaluation patient is alert and oriented. She was able to ans wer most the questions. Is currently on 2 L oxygen. He denies NSAID intake/excessive salt diet/missing his regular home medications. He denies sick contacts, fever, chills, diarrhea, dysuria. He is up-to-date on flu pneumonia and Covid vaccine. He follows up with physician Royce Mckee 10/07-patient doing a lot better. Diuresing well. No overnight events. Feels improved since admission. Orthopnea improving. Tolerating diet. Ongoing therapies. No overnight fever chills or concerns per nursing staff. Paced rhythm, pleasant and cooperative 6/6-patient doing well. Responding to diuresis.Creatinine 1.6. Lower diuretic dose. No overnight fever chills. Magnesium 1.5 on replacement. Large right- sided pleural effusion Constitutional Vitals: Vital Signs Temp Pulse Resp BP Pulse Ox 97.1 F 85 15 113/62 92 10/08/20 08:01 10/08/20 08:01 10/08/20 08:01 10/08/20 08:01 10/08/20 08:01 Period Temp Pulse Resp BP Sys/Levi Pulse Ox Last 24 Hr 97.1 F-97.6 F 65-85 13-26 85-135/47-82 92-99 Intake and Output 10/07/20 10/08/20 10/08/20 21:59 05:59 13:59 Intake Total 65 600 240 Output Total 150 450 50 Balance -85 150 190 Weight 96.887 kg Alert oriented Nonlabored breathing on 2 L oxygen Absent breath sounds right lateral chest Lymphedema much improved Intake & Output: Intake & Output 10/07/20 10/08/20 10/08/20 21:59 05:59 13:59 Intake Total 65 600 240 Output Total 150 450 50 Balance -85 150 190 Weight 96.887 kg Intake: IV 65 Oral 600 240 Output: Void Amount 150 450 50 Other: Meal Breakfast Percent of Meal Consumed 100% Feeding Ability Independent Urine Appearance Clear Urine Color Dark Yellow Urine Odor Normal Stool Size Moderate Small Moderate Stool Color Brown Brown Brown Stool Consistency Soft Soft Soft Loose Formed # Bowel Movements 1 1 1 # of times incontinent of 0 0 0 Bowels OBJ DATA Labs CBC & Chem 7: 10/08/20 05:25 10/08/20 05:25 Labs: Abnormal Lab Results 10/08/20 10/08/20 10/07/20 05:25 05:25 05:34 RBC 3.41 L Hgb 10.1 L Hct 32.3 L POC Hct RDW 15.4 H Plt Count 138 L MPV 10.7 H Edmunds % (Auto) 14.0 H Lymph # (Auto) 0.92 L RBC Morphology Anisocytosis ESR BUN 27 H Creatinine 1.6 H Glucose 120 H 131 H Phosphorus 4.6 H Magnesium 1.5 L 1.1 L AST 41 H Lactate Dehydrogenase 257 H 262 H NT-Pro-B Natriuret Pep Procalcitonin 10/07/20 10/06/20 10/06/20 05:34 11:07 11:07 RBC 3.51 L Hgb 10.5 L Hct 33.2 L POC Hct 36 L RDW 15.6 H Plt Count 138 L MPV 11.0 H Edmunds % (Auto) 14.7 H Lymph # (Auto) 0.95 L RBC Morphology Anisocytosis ESR 34 H BUN Creatinine Glucose Phosphorus Magnesium AST Lactate Dehydrogenase NT-Pro-B Natriuret Pep 492.4 H Procalcitonin 0.10 H 10/06/20 11:07 RBC 3.89 L Hgb 11.7 L Hct 36.5 L POC Hct RDW 15.5 H Plt Count MPV 10.7 H Edmunds % (Auto) Lymph # (Auto) RBC Morphology Abnormal A Anisocytosis Few A ESR BUN Creatinine Glucose Phosphorus Magnesium AST Lactate Dehydrogenase NT-Pro-B Natriuret Pep Procalcitonin Meds: Medications Acetaminophen (Acetaminophen 325 Mg Tablet) 650 mg PO Q4-6HP PRN; Protocol PRN Reason: Per Pain Protocol/Fever > 101 Last Admin: 10/07/20 00:51 Dose: 650 mg Documented by: Apixaban (Apixaban 5 Mg Tablet) 5 mg PO BID [facility] Last Admin: 10/07/20 21:02 Dose: 5 mg Documented by: Atorvastatin Calcium (Atorvastatin 40 Mg Tablet) 40 mg PO QDAY [facility] Last Admin: 10/07/20 09:42 Dose: 40 mg Documented by: Bisacodyl (Bisacodyl 10 Mg Supp.Rect) 10 mg HI Q2-3DAYS PRN PRN Reason: Constipation Dextrose (Dextrose 50% 50 Ml Vial) 0 ml IV UD PRN PRN Reason: Hypoglycemia Diagnostic Test (Pha) (Accu-Chek 1 Each Strip) 1 each FS [facility]S [facility] Last Admin: 10/08/20 07:24 Dose: 1 each Documented by: Docusate Sodium (Docusate Sodium 100 Mg Capsule) 100 mg PO BID [facility] Last Admin: 10/07/20 21:02 Dose: 100 mg Documented by: Furosemide (Furosemide 40 Mg/4 Ml Vial) 20 mg IV Q8H [facility] Last Admin: 10/08/20 07:23 Dose: 20 mg Documented by: Glucose (Dextrose 31 Gm Oral.Susp) 15 gm PO PRN PRN PRN Reason: Hypoglycemia Potassium Chloride 40 meq/ (Dextrose) 520 mls @ 130 mls/hr IV UD PRN PRN Reason: K+ = or < 3.5 Acetaminophen (Ofirmev) 650 mg in 65 mls @ 130 mls/hr IV Q6HP PRN; Protocol PRN Reason: Per Pain Protocol/Fever > 101 Last Infusion: 10/07/20 17:56 Dose: Infused Documented by: Magnesium Sulfate (Magnesium Sulfate) 2 gm in 50 mls @ 50 mls/hr IV UD PRN PRN Reason: MG = or < 1.7 Last Admin: 10/08/20 09:37 Dose: 50 mls/hr Documented by: Insulin Human Lispro (Insulin Lispro 1 Unit/0.01 Ml Unit) 0 unit SQ [facility]; Protocol Last Admin: 10/08/20 07:31 Dose: Not Given Documented by: Iron Carb/Multivit/[place]/Folic Acid (Multivit,Ther Iron,Ca,Fa & Min 1 Tablet) 1 tab PO DAILY [facility] Last Admin: 10/07/20 09:42 Dose: 1 tab Documented by: Lisinopril (Lisinopril 10 Mg Tablet) 10 mg PO DAILY [facility] Last Admin: 10/07/20 11:31 Dose: Not Given Documented by: Melatonin (Melatonin 3 Mg Tablet) 3 mg PO HSP PRN PRN Reason: Insomnia Last Admin: 10/06/20 21:35 Dose: 3 mg Documented by: Metformin HCl ([facility] Mg [facility]t) [facility] Last Admin: 10/08/20 07:24 Dose: 1,000 mg Documented by: Metoprolol Succinate (Metoprolol Succinate 50 Mg Tab.Xl.24h) 50 mg PO BID [facility] Last Admin: 10/07/20 21:03 Dose: 50 mg Documented by: Metoprolol Tartrate (Metoprolol Tartrate 5 Mg/5 Ml Vial) 5 mg IV Q5M PRN PRN Reason: Heart Rate > 140 bpm Omeprazole (Omeprazole 20 Mg Capsule) 20 mg PO BIDAC [facility] Last Admin: 10/08/20 07:24 Dose: 20 mg Documented by: Ondansetron HCl (Ondansetron 4 Mg Odt Tablet) 4 mg SL Q4-6HP PRN; Protocol PRN Reason: Nausea And Vomiting Ondansetron HCl (Ondansetron 4 Mg/2 Ml Vial) 4 mg IV Q4-6HP PRN; Protocol PRN Reason: Nausea And Vomiting Last Admin: 10/07/20 18:27 Dose: 4 mg Documented by: Alogliptin 25 Mg (Tablet) 1 dose PO DAILY [facility] Last Admin: 10/07/20 11:31 Dose: Not Given Documented by: Polyethylene Glycol (Polyethylene Glycol 3350 17 Gm Packet) 17 gm PO DAILYP PRN PRN Reason: Constipation Potassium Chloride (Potassium Chloride 20 Meq Packet) 40 meq PO DAILYP PRN PRN Reason: K+ < 3.5 Senna/Docusate Sodium (Sennosides/Docusate Sodium 1 Tab Tablet) 1 tab PO HS [facility] Last Admin: 10/07/20 21:02 Dose: 1 tab Documented by: Sodium Chloride (0.9 % Sodium Chloride 10 Ml Syringe) 10 ml IV Q8 [facility] Last Admin: 10/08/20 05:57 Dose: 10 ml Documented by: Spironolactone (Spironolactone 25 Mg Tablet) 25 mg PO QDAY [facility] Last Admin: 10/07/20 09:42 Dose: 25 mg Documented by: Tamsulosin HCl (Tamsulosin 0.4 Mg Capsule) 0.4 mg PO HS [facility] Last Admin: 10/07/20 21:03 Dose: 0.4 mg Documented by: Thiamine HCl (Thiamine 100 Mg Tablet) 100 mg PO DAILY [facility] Last Admin: 10/07/20 09:42 Dose: 100 mg Documented by: A/P Narrative A/P Narrative: * Acute decompensated heart failure, review recent echocardiogram EF 35 to 40%. Continue diuresis. Continue TENNILLE inhibitor/beta-felix/spironolactone and optimize CHF management. Inpatient hospitalization * Acute hypoxic respiratory failure secondary above. Continue supplemental oxygen/pulmonary toilet * Right-sided chest infiltrates suspected pneumonia. Procalcitonin 0.1/sputum exam/cultures. DC antibiotics * Low magnesium on replacement * History of arrhythmia status post ablation/pacemaker at [facility]. * Right-sided pleural effusion likely secondary to CHF. Persistent effusion on repeat imaging. * DM type II continue alogliptin/Metformin/diabetic diet/insulin sliding scale * GERD continue PPI * Anticoagulation on rivaroxaban for CVA prophylaxis * Hyperlipemia continue statin Plan * Lower diuretic dose * Replace magnesium * Pre-existing medical condition management home medication * Continue to wean oxygen as tolerated * PT OT nutrition support * Discharge planning Time Spent With Patient Time: Total time spent is greater than 50% in coordination of care (as documented) at patient's floor/unit and/or counseling patient: QUALITY VTE Deep Vein Thrombosis/Pulmonary Embolism Present on Admission: No
[2020-10-08] MEDS: METOPROLOL SUCCINATE 50 MG TAB.XL.24H PO SCH ×2 (10:36→21:11)
[2020-10-08] MEDS: ACETAMINOPHEN 650 MG/65 ML BAG IV PRN (10:36)
[2020-10-08] MEDS: THIAMINE 100 MG TABLET PO SCH (10:36)
[2020-10-08] MEDS: APIXABAN 5 MG TABLET PO SCH ×2 (10:36→21:11)
[2020-10-08] MEDS: MULTIVIT,THER IRON,CA,FA & MIN 1 TABLET PO SCH (10:36)
[2020-10-08] MEDS: ATORVASTATIN 40 MG TABLET PO SCH (10:36)
[2020-10-08] MEDS: SPIRONOLACTONE 25 MG TABLET PO SCH (10:36)
[2020-10-08] MEDS: DOCUSATE SODIUM 100 MG CAPSULE PO SCH ×2 (11:20→21:11)
--- NOTE | 2020-10-08 12:23 | Ultrasound Report ---
INDICATION: PRIMO TECHNIQUE: Grayscale and color flow Doppler spectral imaging. COMPARISON: None. FINDINGS: Right kidney: Right kidney [id number] cm in length. There is no hydronephrosis. No solid right renal mass. No detectable renal calculi. Right renal cortex is mildly echogenic consistent with medical renal disease. There is a 2.8 cm midpole simple cyst. Left kidney: Left kidney [id number] cm in length. There is no hydronephrosis. No solid left renal mass. No detectable calculi. There is a 2.4 cm mid pole simple parapelvic cyst. Cortex is mildly echogenic consistent with medical renal disease Bladder: Prevoid bladder [id number] mL. Ureteral jets are not identified Incidental note is made of a right pleural effusion IMPRESSION: 1. Mildly echogenic renal cortex consistent with medical renal disease 2. Bilateral simple renal cysts. No hydronephrosis Interpreted and Authenticated by: Denzel Oneal 10/08/20
[2020-10-08] MEDS: LISINOPRIL 10 MG TABLET PO SCH (19:07)
[2020-10-08] MEDS: SENNOSIDES/DOCUSATE SODIUM 1 TAB TABLET PO SCH (21:11)
[2020-10-08] MEDS: MELATONIN 3 MG TABLET PO PRN (21:11)
[2020-10-08] MEDS: TAMSULOSIN 0.4 MG CAPSULE PO SCH (21:11)
[2020-10-09] MEDS: ACETAMINOPHEN 325 MG TABLET PO PRN ×3 (02:09→17:01)
[2020-10-09] MEDS: 0.9 % SODIUM CHLORIDE 10 ML SYRINGE IV SCH ×3 (06:03→21:02)
[2020-10-09 06:47] LABS: Basophils # (Auto) 0.03 K/mcL (0.00-0.20); Basophils % (Auto) 0.6 % (0.0-2.0); Eosinophils # (Auto) 0.13 K/mcL (0.00-0.70); Eosinophils % (Auto) 2.8 % (0.0-7.0); Hematocrit 31.9 % (41.0-55.0); Hemoglobin 10.1 g/dL (13.5-16.5); Lymphocytes # (Auto) 0.82 K/mcL (1.50-4.80); Lymphocytes % (Auto) 17.4 % (15.0-49.0); Mean Cell Volume 93.8 fL (80.0-100.0); Mean Corpuscular HGB Conc 31.7 g/dL (31.0-36.0); Mean Platelet Volume 10.6 fL (7.4-10.4); Monocytes # (Auto) 0.72 K/mcL (0.10-0.90); Monocytes % (Auto) 15.3 % (1.0-12.0); Neutrophils % (Auto) 63.9 % (38.0-78.0); Platelet Count 133 K/mcL (140-440); Red Cell Distribution Width 15.2 % (11.5-14.5); WBC 4.7 K/mcL (4.5-11.0)
[2020-10-09 07:43] LABS: ALT/SGPT 22 U/L (<40); AST/SGOT 38 U/L (<40); Albumin 3.4 gm/dL (3.2-5.2); Albumin/Globulin Ratio 1.3 (1.0-2.3); Alkaline Phosphatase 105 U/L (39-117); Bilirubin,Direct < 0.2 mg/dL (0-0.3); Bilirubin,Total 0.5 mg/dL (0.1-1.0); Blood Urea Nitrogen 30 mg/dL (8-23); Calcium 9.1 mg/dL (8.6-10.4); Carbon Dioxide 25 mmol/L (22-30); Chloride 99 mmol/L (96-108); Globulin 2.7 gm/dL (2.2-3.7); Glomerular Filtration Rate 58; Glucose 142 mg/dL (70-105); Lactate Dehydrogenase 260 U/L (135-225); Phosphorous 4.3 mg/dL (2.5-4.5); Triglycerides 101 mg/dL (<150); Uric Acid 6.7 mg/dL (2.5-8.0)
[2020-10-09] MEDS: OMEPRAZOLE 20 MG CAPSULE PO SCH ×2 (07:46→17:01)
[2020-10-09] MEDS: INSULIN LISPRO 1 UNIT/0.01 ML UNIT SQ SCH ×4 (09:03→21:02)
[2020-10-09] MEDS: METOPROLOL SUCCINATE 50 MG TAB.XL.24H PO SCH ×2 (09:04→20:57)
[2020-10-09] MEDS: FUROSEMIDE 40 MG/4 ML VIAL IV SCH ×2 (09:04→16:39)
[2020-10-09] MEDS: THIAMINE 100 MG TABLET PO SCH (09:04)
[2020-10-09] MEDS: ATORVASTATIN 40 MG TABLET PO SCH (09:04)
[2020-10-09] MEDS: metFORMIN 500 MG TABLET PO SCH ×2 (09:04→17:01)
[2020-10-09] MEDS: MULTIVIT,THER IRON,CA,FA & MIN 1 TABLET PO SCH (09:04)
[2020-10-09] MEDS: DOCUSATE SODIUM 100 MG CAPSULE PO SCH ×2 (09:04→20:57)
[2020-10-09] MEDS: SPIRONOLACTONE 25 MG TABLET PO SCH (09:05)
[2020-10-09] MEDS: APIXABAN 5 MG TABLET PO SCH (09:32)
--- NOTE | 2020-10-09 14:33 | Internal Med Progress Note ---
SUBJECTIVE Subjective Patient information: Note initiated : 10/09/20 at 2:28 pm Service Date, if different from initiated Date: [] Patient: Wayne Kauffman a 75 y/o M admitted on 10/06/20 for Shortness of breath. Chief Complaint: [] Interval history: History of present illness: Mr. Kauffman is a 75 year old M With history of systolic heart failure/DM type II/HTN/chronic lymphedema and active smoker who presents to the ER with 2 weeks onset of gradually worsening shortness of breath limiting his functionality. Patient's has been getting more fatigue lethargic/gaining weight with increasing lower extremity swelling. Over the last week he has noted increasing orthopnea unable to lay down on his back. Symptoms progressed when the last 48 hours he has been barely able to move around. He lives along with his daughter in [facility] in the basement. Due to his symptoms patient was brought into the ER for evaluation. On of last month he underwent ablation for atrial fibrillation and successful conversion to sinus. He is currently on Eliquis Initial work-up in the ER was consistent with acute decompensated heart failure/right-sided chest infiltrates and pleural effusion. Hospital service was consulted for management of CHF and above symptoms. At the time of my evaluation patient is alert and oriented. She was able to ans wer most the questions. Is currently on 2 L oxygen. He denies NSAID intake/excessive salt diet/missing his regular home medications. He denies sick contacts, fever, chills, diarrhea, dysuria. He is up-to-date on flu pneumonia and Covid vaccine. He follows up with physician Royce Mckee 10/07-patient doing a lot better. Diuresing well. No overnight events. Feels improved since admission. Orthopnea improving. Tolerating diet. Ongoing therapies. No overnight fever chills or concerns per nursing staff. Paced rhythm, pleasant and cooperative 10/08-patient doing well. Responding to diuresis.Creatinine 1.6. Lower diuretic dose. No overnight fever chills. Magnesium 1.5 on replacement. Large right- sided pleural effusion 10/09-patient continues to diurese however worsening hypoxia now on 4 to 5 years oxygen. Very short of breath. Persistent right-sided effusion. Eliquis held, thoracentesis ordered in a.m. White count 10.7. No indication of infectious lung process. Procalcitonin 0.1. ABG 7.39/39/69 on 3 L Constitutional Vitals: Vital Signs Temp Pulse Resp BP Pulse Ox 98.1 F 65 18 125/75 100 10/09/20 08:01 10/09/20 06:01 10/09/20 08:01 10/09/20 13:01 10/09/20 13:36 Period Temp Pulse Resp BP Sys/Levi Pulse Ox Last 24 Hr 97.3 F-98.2 F 65-86 12-22 102-134/46-75 85-100 Intake and Output 10/09/20 10/09/20 10/09/20 05:59 13:59 21:59 Intake Total 240 Output Total 300 500 Balance -300 -260 Alert oriented but short of breath Labored breathing Improved lymphedema anxious Absent breath sounds right base Intake & Output: Intake & Output 10/09/20 10/09/20 10/09/20 05:59 13:59 21:59 Intake Total 240 Output Total 300 500 Balance -300 -260 Intake: Oral 240 Output: Void Amount 300 500 Other: Meal Breakfast Percent of Meal Consumed 100% Feeding Ability Independent Urine Appearance Clear Clear Urine Color Pale Bright Yellow Urine Odor Normal Normal OBJ DATA Labs CBC & Chem 7: 10/09/20 05:17 10/09/20 05:16 Labs: Abnormal Lab Results 10/09/20 10/09/20 10/08/20 05:17 05:16 05:25 RBC 3.40 L Hgb 10.1 L Hct 31.9 L RDW 15.2 H Plt Count 133 L MPV 10.6 H [place] % (Auto) 15.3 H Lymph # (Auto) 0.82 L ESR BUN 30 H 27 H Creatinine 1.6 H Glucose 142 H 120 H Phosphorus 4.6 H Magnesium 1.5 L AST Lactate Dehydrogenase 260 H 257 H Procalcitonin 10/08/20 10/07/20 10/07/20 05:25 05:34 05:34 RBC 3.41 L 3.51 L Hgb 10.1 L 10.5 L Hct 32.3 L 33.2 L RDW 15.4 H 15.6 H Plt Count 138 L 138 L MPV 10.7 H 11.0 H [place] % (Auto) 14.0 H 14.7 H Lymph # (Auto) 0.92 L 0.95 L ESR 34 H BUN Creatinine Glucose 131 H Phosphorus Magnesium 1.1 L AST 41 H Lactate Dehydrogenase 262 H Procalcitonin 10/06/20 11:07 RBC Hgb Hct RDW Plt Count MPV [place] % (Auto) Lymph # (Auto) ESR BUN Creatinine Glucose Phosphorus Magnesium AST Lactate Dehydrogenase Procalcitonin 0.10 H Meds: Medications Acetaminophen (Acetaminophen 325 Mg Tablet) 650 mg PO Q4-6HP PRN; Protocol PRN Reason: Per Pain Protocol/Fever > 101 Last Admin: 10/09/20 10:12 Dose: 650 mg Documented by: Apixaban (Apixaban 5 Mg Tablet) 5 mg PO BID [facility] Atorvastatin Calcium (Atorvastatin 40 Mg Tablet) 40 mg PO QDAY [facility] Last Admin: 10/09/20 09:04 Dose: 40 mg Documented by: Bisacodyl (Bisacodyl 10 Mg Supp.Rect) 10 mg KS Q2-3DAYS PRN PRN Reason: Constipation Dextrose (Dextrose 50% 50 Ml Vial) 0 ml IV UD PRN PRN Reason: Hypoglycemia Diagnostic Test (Pha) (Accu-Chek 1 Each Strip) 1 each FS ACHS [facility] Last Admin: 10/09/20 12:44 Dose: 1 each Documented by: Docusate Sodium (Docusate Sodium 100 Mg Capsule) 100 mg PO BID [facility] Last Admin: 10/09/20 09:04 Dose: 100 mg Documented by: Furosemide (Furosemide 40 Mg/4 Ml Vial) 20 mg IV BIDD [facility] Last Admin: 10/09/20 09:04 Dose: 20 mg Documented by: Glucose (Dextrose 31 Gm Oral.Susp) 15 gm PO PRN PRN PRN Reason: Hypoglycemia Potassium Chloride 40 meq/ (Dextrose) 520 mls @ 130 mls/hr IV UD PRN PRN Reason: K+ = or < 3.5 Acetaminophen (Ofirmev) 650 mg in 65 mls @ 130 mls/hr IV Q6HP PRN; Protocol PRN Reason: Per Pain Protocol/Fever > 101 Last Infusion: 10/08/20 11:06 Dose: Infused Documented by: Magnesium Sulfate (Magnesium Sulfate) 2 gm in 50 mls @ 50 mls/hr IV UD PRN PRN Reason: MG = or < 1.7 Last Infusion: 10/08/20 10:37 Dose: Infused Documented by: Insulin Human Lispro (Insulin Lispro 1 Unit/0.01 Ml Unit) 0 unit SQ ACHS [facility]; Protocol Last Admin: 10/09/20 12:49 Dose: Not Given Documented by: Iron Carb/Multivit/[place]/Folic Acid (Multivit,Ther Iron,Ca,Fa & Min 1 Tablet) 1 tab PO DAILY [facility] Last Admin: 10/09/20 09:04 Dose: 1 tab Documented by: Melatonin (Melatonin 3 Mg Tablet) 3 mg PO HSP PRN PRN Reason: Insomnia Last Admin: 10/08/20 21:11 Dose: 3 mg Documented by: Metformin HCl (Metformin 500 Mg Tablet) 1,000 mg PO BIDCC [facility] Last Admin: 10/09/20 09:04 Dose: 1,000 mg Documented by: Metoprolol Succinate (Metoprolol Succinate 50 Mg Tab.Xl.24h) 50 mg PO BID [facility] Last Admin: 10/09/20 09:04 Dose: 50 mg Documented by: Metoprolol Tartrate (Metoprolol Tartrate 5 Mg/5 Ml Vial) 5 mg IV Q5M PRN PRN Reason: Heart Rate > 140 bpm Omeprazole (Omeprazole 20 Mg Capsule) 20 mg PO BIDAC [facility] Last Admin: 10/09/20 07:46 Dose: 20 mg Documented by: Ondansetron HCl (Ondansetron 4 Mg Odt Tablet) 4 mg SL Q4-6HP PRN; Protocol PRN Reason: Nausea And Vomiting Ondansetron HCl (Ondansetron 4 Mg/2 Ml Vial) 4 mg IV Q4-6HP PRN; Protocol PRN Reason: Nausea And Vomiting Last Admin: 10/07/20 18:27 Dose: 4 mg Documented by: Alogliptin 25 Mg (Tablet) 1 dose PO DAILY [facility] Last Admin: 10/09/20 09:32 Dose: 1 dose Documented by: Polyethylene Glycol (Polyethylene Glycol 3350 17 Gm Packet) 17 gm PO DAILYP PRN PRN Reason: Constipation Potassium Chloride (Potassium Chloride 20 Meq Packet) 40 meq PO DAILYP PRN PRN Reason: K+ < 3.5 Senna/Docusate Sodium (Sennosides/Docusate Sodium 1 Tab Tablet) 1 tab PO HS [facility] Last Admin: 10/08/20 21:11 Dose: 1 tab Documented by: Sodium Chloride (0.9 % Sodium Chloride 10 Ml Syringe) 10 ml IV Q8 [facility] Last Admin: 10/09/20 12:43 Dose: 10 ml Documented by: Spironolactone (Spironolactone 25 Mg Tablet) 25 mg PO QDAY [facility] Last Admin: 10/09/20 09:05 Dose: 25 mg Documented by: Tamsulosin HCl (Tamsulosin 0.4 Mg Capsule) 0.4 mg PO HS [facility] Last Admin: 10/08/20 21:11 Dose: 0.4 mg Documented by: Thiamine HCl (Thiamine 100 Mg Tablet) 100 mg PO DAILY [facility] Last Admin: 10/09/20 09:04 Dose: 100 mg Documented by: A/P Narrative A/P Narrative: * Acute decompensated heart failure, review recent echocardiogram EF 35 to 40%. Ongoing diuresis. Continue TENNILLE inhibitor/beta-felix/spironolactone and continue to optimize CHF management. * Acute hypoxic respiratory failure secondary to ADHF/pleural effusion. On supplemental oxygen/pulmonary toilet. ABG 7.3 on 3 days oxygen * Right-sided pleural effusion thoracentesis in a.m. Hold Eliquis for 24 hours * Right-sided chest infiltrates suspected pneumonia. Low procalcitonin 0.1/sputum exam pending/cultures negative so far. Off antibiotics * Low magnesium improving with replacement * History of bradycardia tacky arrhythmia status post ablation/pacemaker at [place]. * DM type II continue alogliptin/Metformin/diabetic diet/insulin sliding scale * GERD continue PPI * Anticoagulation on rivaroxaban for CVA prophylaxis-held for 24 hours * Hyperlipemia continue statin Plan * Continue diuresis * ABG * Hold Eliquis * Thoracentesis a.m. * Pre-existing medical condition management home medication * Continue to wean oxygen as tolerated * PT OT nutrition support * Discharge planning Time Spent With Patient Time: Total time spent is greater than 50% in coordination of care (as documented) at patient's floor/unit and/or counseling patient: QUALITY VTE Deep Vein Thrombosis/Pulmonary Embolism Present on Admission: No
[2020-10-09] MEDS: TAMSULOSIN 0.4 MG CAPSULE PO SCH (20:57)
[2020-10-09] MEDS: SENNOSIDES/DOCUSATE SODIUM 1 TAB TABLET PO SCH (20:57)
[2020-10-09] MEDS: MELATONIN 3 MG TABLET PO PRN (21:55)
[2020-10-10] MEDS: 0.9 % SODIUM CHLORIDE 10 ML SYRINGE IV SCH ×2 (06:21→12:21)
[2020-10-10 07:03] LABS: Basophils # (Auto) 0.04 K/mcL (0.00-0.20); Basophils % (Auto) 0.8 % (0.0-2.0); Eosinophils # (Auto) 0.23 K/mcL (0.00-0.70); Eosinophils % (Auto) 4.4 % (0.0-7.0); Hematocrit 32.5 % (41.0-55.0); Hemoglobin 10.2 g/dL (13.5-16.5); Lymphocytes # (Auto) 1.15 K/mcL (1.50-4.80); Lymphocytes % (Auto) 22.2 % (15.0-49.0); Mean Cell Volume 93.9 fL (80.0-100.0); Mean Corpuscular HGB Conc 31.4 g/dL (31.0-36.0); Mean Platelet Volume 11.1 fL (7.4-10.4); Monocytes # (Auto) 0.85 K/mcL (0.10-0.90); Monocytes % (Auto) 16.4 % (1.0-12.0); Neutrophils % (Auto) 56.2 % (38.0-78.0); Platelet Count 150 K/mcL (140-440); RBC 3.46 M/mcL (4.50-5.90); Red Cell Distribution Width 15.3 % (11.5-14.5); WBC 5.2 K/mcL (4.5-11.0)
[2020-10-10] MEDS: OMEPRAZOLE 20 MG CAPSULE PO SCH (07:12)
[2020-10-10] MEDS: INSULIN LISPRO 1 UNIT/0.01 ML UNIT SQ SCH ×2 (07:14→12:25)
[2020-10-10 07:17] LABS: ALT/SGPT 24 U/L (<40); AST/SGOT 48 U/L (<40); Albumin 3.6 gm/dL (3.2-5.2); Albumin/Globulin Ratio 1.4 (1.0-2.3); Alkaline Phosphatase 106 U/L (39-117); Bilirubin,Direct 0.2 mg/dL (<0.3); Bilirubin,Total 0.6 mg/dL (0.1-1.0); Blood Urea Nitrogen 27 mg/dL (8-23); Calcium 9.3 mg/dL (8.6-10.4); Carbon Dioxide 26 mmol/L (22-30); Chloride 96 mmol/L (96-108); Globulin 2.6 gm/dL (2.2-3.7); Glomerular Filtration Rate 64; Glucose 119 mg/dL (70-105); Lactate Dehydrogenase 285 U/L (135-225); Phosphorous 3.5 mg/dL (2.5-4.5); Triglycerides 109 mg/dL (<150)
[2020-10-10] MEDS: MAGNESIUM SULFATE 2 GM/50 ML BAG IV PRN (08:15)
[2020-10-10] MEDS: FUROSEMIDE 40 MG/4 ML VIAL IV SCH ×2 (08:34→16:22)
[2020-10-10] MEDS: METOPROLOL SUCCINATE 50 MG TAB.XL.24H PO SCH (08:35)
[2020-10-10] MEDS: THIAMINE 100 MG TABLET PO SCH (08:35)
[2020-10-10] MEDS: DOCUSATE SODIUM 100 MG CAPSULE PO SCH (08:35)
[2020-10-10] MEDS: ACETAMINOPHEN 325 MG TABLET PO PRN (08:35)
[2020-10-10] MEDS: SPIRONOLACTONE 25 MG TABLET PO SCH (08:35)
[2020-10-10] MEDS: ATORVASTATIN 40 MG TABLET PO SCH (08:35)
[2020-10-10] MEDS: metFORMIN 500 MG TABLET PO SCH (08:35)
[2020-10-10] MEDS: MULTIVIT,THER IRON,CA,FA & MIN 1 TABLET PO SCH (08:36)
--- NOTE | 2020-10-10 11:54 | Ultrasound Report ---
Ultrasound-guided thoracentesis CLINICAL INFORMATION: Large right pleural effusion TECHNIQUE: Procedure and risks including possibility of bleeding, infection, and pneumothorax were explained to the patient. They understood and wished to proceed. With the patient in upright position, the fluid was first sonographically localized over the posterior right 10th intercostal space at posterior axillary line. The skin overlying this region was marked, prepped and locally anesthetized with 1% lidocaine using a 25-gauge needle to the level the parietal pleura. An 18-gauge Yueh needle was then advanced under sonographic guidance into the pleural fluid and approximately 2 L of simple appearing transudative fluid was aspirated. Post procedure scanning shows only minimal residual fluid. Patient tolerated procedure well without apparent complication. Follow-up chest x-ray to be obtained IMPRESSION: Successful thoracentesis yielding 2 L of transudative appearing simple pleural fluid. No apparent complication Interpreted and Authenticated by: Denzel Shelton 10/10/20
--- NOTE | 2020-10-10 15:57 | EKG ---
[facility] Test Date: 2020-10-09 Pat Name: Wayne Kauffman Department: ED Room: Gender: Male [employer]: : 1945 Requested By: Jake Low Order Number: [id number] Reading MD: Jose Jones M.D. Measurements Intervals [place] Rate: 79 P: 43 RI: 168 QRS: -3 QRSD: 103 T: 257 QT: 388 QTc: 445 Interpretive Statements Sinus rhythm Anterior infarct, old Nonspecific repol abnormality, lateral leads SINCE TRACING OF 10-06-2020, NEW "OLD" ASMI, NO IMI QUERY SAME PATIENT Electronically Signed On 10-10-2020 15:57:19 PDT by Jose Jones M.D. /[facility]/M0/[id number].pdf
[2020-10-10 16:00] LABS: pH,Body Fluid 7.58
--- NOTE | 2020-10-10 16:01 | Discharge Summary ---
Discharge Provider Provider Patient information: Note initiated : 10/10/20 at 3:56 pm Service Date, if different from initiated Date: [] Patient: Wayne Kauffman a 75 y/o M admitted on 10/06/20 for Shortness of breath. Discharge diagnosis * Acute decompensated heart failure, review recent echocardiogram EF 35 to 40%. Ongoing diuresis. Continue TENNILLE inhibitor/beta-felix/spironolactone and continue to optimize CHF management. * Acute hypoxic respiratory failure secondary to ADHF/pleural effusion. Clinically resolved. Now on room air. * Right-sided pleural effusion -status post 1999 cc thoracentesis. * Right-sided chest infiltrates. Low procalcitonin 0.1/sputum exam pending/cultures negative so far. Off antibiotics * Low magnesium resolved with replacement * History of bradycardia tacky arrhythmia status post ablation/pacemaker at [place]. Follows up with cardiology at [place] [facility] * DM type II continue alogliptin/Metformin/diabetic diet/insulin sliding scale * GERD continue PPI * Anticoagulation continue rivaroxaban * Hyperlipemia continue statin Brief hospital course Interval history: History of present illness: Mr. Kauffman is a 75 year old M With history of systolic heart failure/DM type II/HTN/chronic lymphedema and act kelley smoker who presents to the ER with 2 weeks onset of gradually worsening shortness of breath limiting his functionality. Patient's has been getting more fatigue lethargic/gaining weight with increasing lower extremity swelling. Over the last week he has noted increasing orthopnea unable to lay down on his back. Symptoms progressed when the last 48 hours he has been barely able to move around. He lives along with his daughter in [facility] in the basement. Due to his symptoms patient was brought into the ER for evaluation. On 14 of last month he underwent ablation for atrial fibrillation and successful conversion to sinus. He is currently on Eliquis Initial work-up in the ER was consistent with acute decompensated heart failure/right-sided chest infiltrates and pleural effusion. Hospital service was consulted for management of CHF and above symptoms. At the time of my evaluation patient is alert and oriented. She was able to answer most the questions. Is currently on 2 L oxygen. He denies NSAID intake/excessive salt diet/missing his regular home medications. He denies sick contacts, fever, chills, diarrhea, dysuria. He is up-to-date on flu pneumonia and Covid vaccine. He follows up with physician Royce Mckee 10/07-patient doing a lot better. Diuresing well. No overnight events. Feels improved since admission. Orthopnea improving. Tolerating diet. Ongoing therapies. No overnight fever chills or concerns per nursing staff. Paced rhythm, pleasant and cooperative 10/08-patient doing well. Responding to diuresis.Creatinine 1.6. Lower diuretic dose. No overnight fever chills. Magnesium 1.5 on replacement. Large right- sided pleural effusion 10/09-patient continues to diurese however worsening hypoxia now on 4 to 5 years oxygen. Very short of breath. Persistent right-sided effusion. Eliquis held, thoracentesis ordered in a.m. White count 10.7. No indication of infectious lung process. Procalcitonin 0.1. ABG 7.39/39/69 on 3 L 10/10-patient underwent thoracentesis with dramatic improvement in hypoxia and shortness of breath. From 4 L patient now on room air ambulating and feels at baseline. Requesting discharge. Recommend follow-up with cardiology as outpatient. Patient already has an appointment on with [facility] Date of admission: 10/06/20 15:25 Discharge date: 10/10/20 Primary care physician: JUNITO Dietrich Consults: 10/06/20 Consult to Physician [CONS] Stat Comment: Consulting Provider: Leonardo Wynn Reason For Exam: Physician to Consult 10/06/20 12:20 Consult to Physician [CONS] Stat Comment: Consulting Provider: John Munoz Reason For Exam: Physician to Consult Discharge Meds Discharge Medications Home Medications nitroglycerin 0.4 mg sublingual tablet 0.4 mg SUBLINGUAL Q5-15M PRN 04/19/19 [History Confirmed 10/06/20 Last Taken Unknown] blood-glucose meter #1 each 05/18/19 [Rx Confirmed 10/06/20 Last Taken Unknown] blood sugar diagnostic #100 each 06/02/19 [Rx Confirmed 10/06/20 Last Taken Unknown] lancets #100 each 06/02/19 [Rx Confirmed 10/06/20 Last Taken Unknown] spironolactone 25 mg tablet 25 mg PO QDAY #90 tab 03/28/20 [Rx Confirmed 10/06/20 Last Taken Unknown] atorvastatin 40 mg tablet 40 mg PO QDAY #90 tab 06/15/20 [Rx Confirmed 10/06/20 Last Taken Unknown] omeprazole 20 mg capsule,delayed release See Rx Instructions .ROUTE .COMPLEX #180 cap 06/22/20 [Rx Confirmed 10/06/20 Last Taken Unknown] glipizide 5 mg tablet 5 mg PO BID #180 tab 09/14/20 [Rx Confirmed 10/06/20 Last Taken Unknown] metformin 1,000 mg tablet 1,000 mg PO BID #180 tab 09/14/20 [Rx Confirmed 10/06/20 Last Taken Unknown] metoprolol succinate 100 mg tablet,extended release 24 hr 50 mg PO BID #60 tab 09/25/20 [Rx Confirmed 10/06/20 Last Taken Unknown] Eliquis 5 mg PO BID 10/06/20 [History Confirmed 10/06/20 Last Taken Unknown] alogliptin 25 mg PO DAILY 10/06/20 [History Confirmed 10/06/20 Last Taken Unknown] lisinopril 10 mg PO DAILY 10/06/20 [History Confirmed 10/06/20 Last Taken Unknown] omeprazole 20 mg PO BIDAC 10/06/20 [History Confirmed 10/06/20 Last Taken Unknown] furosemide [Lasix] 20 mg PO QDAY #30 tab 10/10/20 [Rx Last Taken Unknown] tamsulosin 0.4 mg PO HS #30 cap 10/10/20 [Rx Last Taken Unknown] COURSE Hospital Course Hospital course: . Discharge diagnosis: Decompensated heart failure/pleural effusion Time Spent with Patient Time attestation: Total time spent providing and/or coordinating discharge services: EXAM Constitutional Vitals: Temp Pulse Resp BP Pulse Ox 97.8 F 65 16 113/63 95 10/10/20 12:01 10/09/20 06:01 10/10/20 14:01 10/10/20 14:01 10/10/20 14:01 Discharge Data Data Completed and Pending Labs on day of discharge: Labs from last 24 hours 10/10/20 10/10/20 10/10/20 10:22 10:22 10:21 WBC RBC Hgb Hct MCV MCH MCHC RDW Plt Count MPV Neut % (Auto) Lymph % (Auto) [place] % (Auto) Eos % (Auto) Baso % (Auto) Lymph # (Auto) [place] # (Auto) Eos # (Auto) Baso # (Auto) Absolute Neutrophils Sodium Potassium Chloride Carbon Dioxide Anion Gap BUN Creatinine GFR Calculation Glucose Uric Acid Calcium Phosphorus Magnesium Total Bilirubin Direct Bilirubin GGT AST ALT Alkaline Phosphatase Lactate Dehydrogenase 288 H Total Protein 6.5 Albumin Globulin Albumin/Globulin Ratio Triglycerides Fluid pH Pending Fluid Total Protein Pending Fluid LDH Pending Fluid Triglycerides Pending Pleural Fluid Source Pending Pleural Color Pending Pleural Appearance Pending Pleural RBC Pending Pleural Nuc Cells Pending Pleural Neutrophils Pending Pleural Lymphocytes Pending Pleural Albumin Pending Pleural Glucose Pending 10/10/20 10/10/20 05:12 05:12 WBC 5.2 RBC 3.46 L Hgb 10.2 L Hct 32.5 L MCV 93.9 MCH 29.5 MCHC 31.4 RDW 15.3 H Plt Count 150 MPV 11.1 H Neut % (Auto) 56.2 Lymph % (Auto) 22.2 [place] % (Auto) 16.4 H Eos % (Auto) 4.4 Baso % (Auto) 0.8 Lymph # (Auto) 1.15 L [place] # (Auto) 0.85 Eos # (Auto) 0.23 Baso # (Auto) 0.04 Absolute Neutrophils 2.91 Sodium 134 Potassium 4.7 Chloride 96 Carbon Dioxide 26 Anion Gap 12.0 BUN 27 H Creatinine 1.1 GFR Calculation 64 Glucose 119 H Uric Acid 7.0 Calcium 9.3 Phosphorus 3.5 Magnesium 1.7 Total Bilirubin 0.6 Direct Bilirubin 0.2 GGT 57 AST 48 H ALT 24 Alkaline Phosphatase 106 Lactate Dehydrogenase 285 H Total Protein 6.2 Albumin 3.6 Globulin 2.6 Albumin/Globulin Ratio 1.4 Triglycerides 109 Fluid pH Fluid Total Protein Fluid LDH Fluid Triglycerides Pleural Fluid Source Pleural Color Pleural Appearance Pleural RBC Pleural Nuc Cells Pleural Neutrophils Pleural Lymphocytes Pleural Albumin Pleural Glucose Discharge Plan Patient/Caregiver Discharge Instructions Activity: increase activity as tolerated Diet: Consistent Carbohydrate Instructions: Heart Failure (GEN), Pneumonia (GEN) Activity Restrictions/Additional Instructions: Follow-up with cardiology at [facility] Continue diuretics as advised Return to ER if fever chills shortness of breath Daily weights and take additional 20 mg Lasix for 3 days if weight gain is over 4 pounds above baseline This discharge packet is provided to you to help keep you informed about your care. We want to ensure you get everything you need when you go home. You will also be receiving a call from us in a few days to follow up with you and see how you are doing since your discharge. This gives us a chance to listen to any concerns you maybe experiencing since you were discharged or any additional needs you may have, as well as providing us feedback on your care experience. We strive to always provide excellent care and thank you for your feedback and for choosing [facility]. Prescriptions: New tamsulosin 0.4 mg Capsule 0.4 mg PO HS Qty: 30 RF: 0 furosemide [Lasix] 20 mg tablet 20 mg PO QDAY Qty: 30 RF: 0 Continued (DME) blood-glucose meter Kit See Rx Instructions .ROUTE .MEDSUPPLY Qty: 1 RF: 0 (DME) Accu-Chek [place] Plus test strp Strip See Rx Instructions .ROUTE .MEDSUPPLY Qty: 100 RF: 1 (DME) lancets [Accu-Chek Softclix Lancets] Misc See Rx Instructions .ROUTE .MEDSUPPLY Qty: 100 RF: 1 spironolactone 25 mg tablet 25 mg PO QDAY Qty: 90 RF: 2 omeprazole 20 mg capsule,delayed release(DR/EC) See Rx Instructions .ROUTE .COMPLEX Qty: 180 RF: 1 metoprolol succinate 100 mg tablet extended release 24 hr 50 mg PO BID Qty: 60 RF: 5 nitroglycerin [Nitrostat] 0.4 mg tablet, sublingual 0.4 mg SUBLINGUAL Q5-15M PRN (Reason: Chest Pain) RF: 0 glipizide 5 mg tablet 5 mg PO BID Qty: 180 RF: 5 metformin 1,000 mg tablet 1,000 mg PO BID Qty: 180 RF: 5 atorvastatin 40 mg tablet 40 mg PO QDAY Qty: 90 RF: 1 Eliquis 5 mg tablet 5 mg PO BID RF: 0 alogliptin 25 mg tablet 25 mg PO DAILY RF: 0 lisinopril 10 mg tablet 10 mg PO DAILY RF: 0 omeprazole 20 mg capsule,delayed release(DR/EC) 20 mg PO BIDAC RF: 0 Follow Up Plan Follow up with: Lore Falcon MD [Physician] - 10/31/20 1:00 pm (Continue with your current scheduled appointment) River Mckee ARNP [Primary Care Provider] - 10/17/20 1:45 pm Patient Disposition: Home, Self-Care Prognosis: Fair Rehab Potential: Fair I certify that the patient requires SNF services: No Overall status at discharge: patient is progressing back to baseline Discharge Orders: Discharge Order (Routine); Ordered 10/10/20 Ordered By: Leonardo SAUCEDO VTE Deep Vein Thrombosis/Pulmonary Embolism Present on Admission: No
[2020-10-10 16:11] LABS: Glucose,Pleural Fluid 132 mg/dL
[2020-10-10 16:56] LABS: Appearance,Pleural Fluid Hazy; Color,Pleural Fluid Yellow; Lymphocytes,Pleural Fluid 20 %; Mesothelial,Pleural Fluid 6 %; Monocytes,Pleural Fluid 58 %; Neutrophils,Pleural Fluid 16 %; Nucleated Cells,Pleural Fld 404 /cumm; RBC,Pleural Fluid <50,000 /cumm
[2020-10-10] MEDS ORDERED: APIXABAN 5 MG TABLET PO SCH (21:00)
[2020-10-11 03:32] LABS: Triglycerides,Body Fluid 14 mg/dl
--- NOTE | 2020-10-12 13:25 | Non-GYN Cytology Report ---
Non Drug Room Clerk Cytology NG Diagnosis PLEURAL FLUID, RIGHT, THORACENTESIS: --- CHRONIC INFLAMMATION AND REACTIVE MESOTHELIAL CELLS. --- NO ATYPICAL OR MALIGNANT CELLS IDENTIFIED. (DMT) NG Micro Description A ThinPrep monolayer slide, Pap stained cytospin slide, Diff Quik stained cytospin slide, Hawk Giemsa stained cytospin slide and a cell block slide are reviewed. Preparations contain numerous macrophages, small, mature lymphocytes, few reactive mesothelial cells, rare neutrophils and few red blood cells. No atypical or malignant cells are identified. NG Gross Description Received 1000 mL yellow cloudy fluid. Electronically Signed Arsalan Malcolm MD, FCAP Electronically Signed 10/12/2020 13:24
== END 2020-10-10 16:37 | disposition home or self-care (01) | DRG 291 ==
LOC: ED 10:10 → ICU 15:25
PROVIDERS: ADMIT Internal Medicine; ATTEND Internal Medicine